=== PATIENT | male | born 1980 | race Caucasian/White ===

== ENCOUNTER 2020-12-18 20:33 | Emergency (ER) | payer OTHER ==
[2020-12-18 20:44] VITALS: BP 127/79
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
[2020-12-19] MEDS ORDERED: BACITRACIN ZINC OINT 1 PACKET TOP STA (00:19)
== END 2020-12-19 00:15 | disposition home or self-care (01) ==
LOC: ED 20:33
DX: S81.811A Laceration without foreign body, right lower leg, initial encounter (principal); X78.8XXA Intentional self-harm by other sharp object, initial encounter; Y93.55 Activity, bike riding
CPT/HCPCS: 12002; 99282